=== PATIENT | male | born 1995 | race Two or more races ===

== ENCOUNTER 2022-05-10 21:29 | Emergency (ER) | payer MEDICAID ==
[~2022-05-10] VITALS: Ht 172.7 cm; Wt 81.6 kg
[2022-05-10 21:29] VITALS: BP 124/87
== END 2022-05-10 23:28 | disposition left against medical advice (07) ==
LOC: ER 21:29
DX: M54.2 Cervicalgia (principal); Z53.21 Procedure and treatment not carried out due to patient leaving prior to being seen by health care provider; W22.8XXA Striking against or struck by other objects, initial encounter; Y93.51 Activity, roller skating (inline) and skateboarding; Y92.89 Other specified places as the place of occurrence of the external cause; Y99.8 Other external cause status